=== PATIENT | male | born 1975 | race Caucasian/White ===

== ENCOUNTER 2018-05-07 20:43 | Emergency (ER) | payer MEDICAID ==
[2018-05-07] MEDS ORDERED: predniSONE 20 MG TABLET PO STA (22:57)
[2018-05-07] MEDS ORDERED: IPRATROPIUM/ALBUTEROL 3 ML NEB INH STA (22:57)
--- NOTE | 2018-05-07 22:59 | ED Physician Documentation ---
PD HPI URI - Stated complaint Stated Complaint: ASTHMA ATTACK - Chief complaint Chief Complaint: Resp - History obtained from History obtained from: Patient - History of Present Illness Timing - onset: Other (42-year-old with history of asthma, he is visiting locally and he ran out of his breath without productive cough or chest pain.) Review of Systems Constitutional: denies: Fever, Chills Cardiac: denies: Chest pain / pressure, Palpitations Respiratory: reports: Dyspnea, Cough GI: denies: Abdominal Pain PD PAST MEDICAL HISTORY - Past Medical History Past Medical History: Yes Respiratory: Asthma - Past Surgical History Past Surgical History: Yes - Present Medications Home Medications: Ambulatory Orders Medication Instructions Recorded Confirmed RX: Albuterol Sulf [Ventolin Hfa 1 - 2 puffs INH Q4HR PRN #1 inhaler 05/07/18 Inhaler] RX: predniSONE [Deltasone] 60 mg PO DAILY 5 Days tablet 05/07/18 - Allergies Allergies/Adverse Reactions: Allergies Allergy/AdvReac Type Severity Reaction Status Date / Time No Known Drug Allergies Allergy Verified 05/07/18 23:00 - Social History Does the pt smoke?: Yes Smoking Status: Current every day smoker Does the pt drink ETOH?: Yes Does the pt have substance abuse?: No - Immunizations Immunizations are current?: Yes - POLST Patient has POLST: No PD ED PE NORMAL - Vitals Vital signs reviewed: Yes - General General: Alert and oriented X 3, No acute distress - Cardiac Cardiac: RRR, No murmur - Respiratory Respiratory: No respiratory distress, Other (Diminished at the bases with slight wheezing but decent air motion.) - Abdomen Abdomen: Non tender - Extremities Extremities: No edema, No calf tenderness / cord - Neuro Neuro: Alert and oriented X 3, Normal speech Results - Vitals Vitals: Vital Signs - 24 hr 05/07/18 05/07/18 05/07/18 20:47 23:11 23:19 Temperature 36.0 C L 36.4 C L Heart Rate 84 80 68 Respiratory 18 18 16 Rate Blood Pressure 124/77 102/57 L O2 Saturation 99 100 Oxygen O2 Source Room air PD MEDICAL DECISION MAKING - ED course ED course: 42 yom with asthma exac, no s/sx of infectious etiology. Duoneb here with PO s teroids. Departure - Departure Disposition: Home, Self Care Clinical Impression: Asthma Condition: Good Record reviewed to determine appropriate education?: Yes Instructions: Asthma Dc Prescriptions: RX: Albuterol Sulf [Ventolin Hfa Inhaler] 1 - 2 puffs INH Q4HR PRN #1 inhaler PRN Reason: Shortness Of Air/Wheezing RX: predniSONE [Deltasone] 60 mg PO DAILY 5 Days tablet Comments: Call your doctor to arrange a follow-up appointment, make the next available appointment. In the interim, return anytime if worse or if new symptoms develop. Discharge Date/Time: 05/07/18 23:24
[2018-05-07 23:21] VITALS: BP 102/57
== END 2018-05-07 23:24 | disposition home or self-care (01) ==
LOC: ED 20:43
DX: J45.909 Unspecified asthma, uncomplicated (principal); F17.200 Nicotine dependence, unspecified, uncomplicated
CPT/HCPCS: 94640; 99282; 99283; J7512